=== PATIENT | female | born 1965 | race Two or more races ===

== ENCOUNTER 2018-08-17 11:36 | Outpatient (CLI) | payer OTHER | END 2018-08-17 11:50 | disposition home or self-care (01) | LOC: MAMO-SONO 11:36 | DX: N63.10 Unspecified lump in the right breast, unspecified quadrant (principal); N63.20 Unspecified lump in the left breast, unspecified quadrant; Z12.31 Encounter for screening mammogram for malignant neoplasm of breast ==